=== PATIENT | female | born 1945 | race Two or more races ===

== ENCOUNTER 2018-04-07 19:06 | Inpatient (IN) | payer MEDICARE, MEDICAID ==
[~2018-04-07] VITALS: Ht 152.4 cm; Wt 45.6 kg
[2018-04-07] MEDS ORDERED: SODIUM CHLORIDE 0.9% 1,000 ML IVB ONE (19:37)
[2018-04-07] MEDS ORDERED: ONDANSETRON HCL 4 MG/2 ML VIAL IV ONE (19:45)
[2018-04-07 20:35] LABS: Basophils # (auto) 0 uL; Basophils % (auto) 0.8 % (0.0-2.0); Eosinophils # (auto) 0.1 uL; Eosinophils % (auto) 1.4 % (0.0-7.0); Hematocrit 28.9 % (36.0-46.0); Hemoglobin 9.1 g/dL (12.2-16.2); Lymphocytes # (auto) 0.3 uL; Lymphocytes % (auto) 7.9 % (10.0-50.0); Mean Corpuscular Hemoglobin 28.9 pg (28.0-32.0); Mean Corpuscular Hgb Conc. 31.7 g/dL (32.0-36.0); Mean Corpuscular Volume 91.2 fL (80.0-100.0); Monocytes # (auto) 0.3 uL; Monocytes % (auto) 7.1 % (0.0-12.0); Neutrophils # (auto) 3.5 uL; Neutrophils % (auto) 82.8 % (37.0-80.0); Platelet Count (auto) 87 10^3/uL (140-450); Red Blood Cells 3.17 10^6/uL (4.0-5.20); Red Cell Distribution Width 16.4 % (11.8-14.3); White Blood Cell 4.2 10^3/uL (4.4-10.8)
[2018-04-07 20:43] LABS: INR 1.11 (0.9-1.15); Partial Thromboplastin Time 25.2 sec (23.78-33.04); Prothrombin Time 11.8 sec (9.27-12.13)
[2018-04-07 20:52] LABS: Albumin 2.6 g/dL (3.4-5.0); BUN/Creatinine Ratio 18.1; Bilirubin, Total 0.8 mg/dL (0.2-1.0); Calcium 7.9 mg/dL (8.5-10.1); Magnesium 2.6 mg/dL (1.6-2.6); Potassium 3.3 mmol/L (3.5-5.1); Total Protein 6.9 g/dL (6.4-8.2)
[2018-04-07] MEDS ORDERED: TEMAZEPAM 15 MG CAP PO PRN (22:15)
[2018-04-07] MEDS ORDERED: PANTOPRAZOLE 40 MG/10 ML VIAL IV ONE (22:15)
[2018-04-07] MEDS ORDERED: MORPHINE SULF INJ 2 MG/ML SYRINGE 1ML IV PRN (22:15)
[2018-04-07] MEDS: SODIUM CHLORIDE 0.9% 1,000 ML IV SCH (22:15)
[2018-04-07] MEDS ORDERED: ONDANSETRON HCL 4 MG/2 ML VIAL IV PRN (22:15)
[2018-04-07 22:49] LABS: Ferritin 188.1 ng/mL (10-322)
[2018-04-08] VITALS (25 sets, daily range): BP systolic 101–166; BP diastolic 46–102
[2018-04-08] MEDS ORDERED: ALPR0.25 PO (03:22)
[2018-04-08] MEDS ORDERED: FURO40TA4 PO (03:22)
[2018-04-08] MEDS ORDERED: CAR3125T PO (03:22)
[2018-04-08] MEDS ORDERED: MAGN400T5 PO (03:22)
[2018-04-08] MEDS ORDERED: ALLO100T PO (03:22)
[2018-04-08] MEDS ORDERED: TERA2CAP45 PO (03:22)
[2018-04-08] MEDS ORDERED: OME20T PO (03:22)
[2018-04-08] MEDS ORDERED: FERR1TAB36 PO (03:22)
[2018-04-08] MEDS ORDERED: BACL10TA PO (03:22)
[2018-04-08] MEDS ORDERED: [UNRECOGNIZED DRUG - CODE] PO (03:22)
[2018-04-08] MEDS ORDERED: LEV100T PO (03:22)
[2018-04-08] MEDS ORDERED: TRAM50TA2 PO (03:22)
[2018-04-08] MEDS ORDERED: SITA100T7 PO (03:22)
[2018-04-08] MEDS ORDERED: SIMV10TA84 PO (03:22)
[2018-04-08] MEDS ORDERED: DONE5TAB11 PO (03:22)
[2018-04-08] MEDS ORDERED: PATI1POW PO (03:22)
[2018-04-08] MEDS ORDERED: DONETAB5 PO (03:26)
[2018-04-08 06:07] LABS: Basophils # (auto) 0 uL; Eosinophils # (auto) 0 uL; Hemoglobin 7.2 g/dL (12.2-16.2); Lymphocytes # (auto) 0.3 uL; Monocytes # (auto) 0.2 uL; White Blood Cell 2.5 10^3/uL (4.4-10.8)
[2018-04-08 06:09] LABS: Basophils % (auto) 0.7 % (0.0-2.0); Eosinophils % (auto) 0.4 % (0.0-7.0); Hematocrit 22.1 % (36.0-46.0); Lymphocytes % (auto) 11.9 % (10.0-50.0); Mean Corpuscular Hemoglobin 29.3 pg (28.0-32.0); Mean Corpuscular Hgb Conc. 32.6 g/dL (32.0-36.0); Mean Corpuscular Volume 89.8 fL (80.0-100.0); Monocytes % (auto) 9.3 % (0.0-12.0); Neutrophils % (auto) 77.7 % (37.0-80.0); Platelet Count (auto) 66 10^3/uL (140-450); Red Blood Cells 2.46 10^6/uL (4.0-5.20); Red Cell Distribution Width 15.4 % (11.8-14.3)
[2018-04-08 06:27] LABS: BUN/Creatinine Ratio 22.3; Calcium 7.5 mg/dL (8.5-10.1)
[2018-04-08] MEDS: LEVOTHYROXINE SODIUM 100 MCG TAB PO SCH (06:45)
[2018-04-08] MEDS: FERROUS SULFATE 325 MG TAB PO SCH ×2 (08:23→18:00)
[2018-04-08] MEDS: PANTOPRAZOLE 40 MG/10 ML VIAL IV SCH ×2 (09:41→22:18)
[2018-04-08] MEDS ORDERED: LIDOCAINE VISCOUS 2% 15ML UD ONE (12:33)
[2018-04-08] MEDS ORDERED: SODIUM CHLORIDE LOCK 10 ML ONE (12:33)
[2018-04-08] MEDS ORDERED: diphenhdrAMINE HCL 50 MG/1 ML VL ONE (12:34)
[2018-04-08] MEDS ORDERED: NALOXONE HCL 0.4 MG/ML VIAL ONE (12:39)
[2018-04-08] MEDS ORDERED: FLUMAZENIL 0.1 MG/ML INJ 10ML MDV IV ONE (12:39)
[2018-04-08] MEDS: fentaNYL CITRATE 100 MCG/2 ML VL ONE ×2 (12:55→12:58)
[2018-04-08] MEDS: MIDAZOLAM HCL 5 MG/ML-1ML VIAL ONE ×2 (12:55→12:58)
[2018-04-08] MEDS ORDERED: OCTREOTIDE ACETATE 100 MCG in SODIUM CHL 0.9% 50 ML IV ONE (13:15)
[2018-04-08] MEDS: OCTREOTIDE ACETATE 500 MCG in SODIUM CHL 0.9% 99 ML IV SCH ×2 (16:00→23:31)
[2018-04-08] MEDS ORDERED: FUROSEMIDE 20 MG/2 ML VIAL IV ONE (17:15)
[2018-04-08] MEDS ORDERED: ERY05OO OP (20:52)
[2018-04-08] MEDS: LABETALOL HCL 5 MG/ML ML 20ML VIAL IV PRN (21:21)
[2018-04-08] MEDS: SODIUM CHLORIDE 0.9% 1,000 ML IV SCH (21:23)
[2018-04-08] MEDS: DONEPEZIL HYDROCHLORIDE 5 MG TAB PO SCH (22:00)
[2018-04-08 23:09] LABS: Hematocrit 43.9 % (36.0-46.0); Hemoglobin 14.4 g/dL (12.2-16.2)
[2018-04-08] MEDS: OCTREOTIDE ACETATE 500 MCG/ML VL ONE ×2 (23:15→23:30)
[2018-04-08] MEDS ORDERED: OCTREOTIDE ACETATE 100 MCG/ML VL ONE (23:19)
[2018-04-09] VITALS: BP 142/78
[2018-04-09 04:00] VITALS: BP 145/85
[2018-04-09 05:03] LABS: Basophils # (auto) 0 uL; Eosinophils # (auto) 0 uL; Lymphocytes # (auto) 0.3 uL; Mean Corpuscular Hgb Conc. 33.6 g/dL (32.0-36.0); Monocytes # (auto) 0.4 uL; Neutrophils # (auto) 3.5 uL; White Blood Cell 4.2 10^3/uL (4.4-10.8)
[2018-04-09 05:10] LABS: Basophils % (auto) 0.8 % (0.0-2.0); Eosinophils % (auto) 0.7 % (0.0-7.0); Hematocrit 39.8 % (36.0-46.0); Hemoglobin 13.4 g/dL (12.2-16.2); Mean Corpuscular Hemoglobin 30.1 pg (28.0-32.0); Mean Corpuscular Volume 89.7 fL (80.0-100.0); Monocytes % (auto) 8.8 % (0.0-12.0); Neutrophils % (auto) 81.7 % (37.0-80.0); Nucleated Red Blood Cells % 0.2 %; Platelet Count (auto) 53 10^3/uL (140-450); Red Blood Cells 4.43 10^6/uL (4.0-5.20)
[2018-04-09] MEDS: SODIUM CHLORIDE 0.9% 1,000 ML IV SCH (06:34)
[2018-04-09] MEDS: LEVOTHYROXINE SODIUM 100 MCG TAB PO SCH ×2 (06:35→06:38)
[2018-04-09 08:00] VITALS: BP 120/87
[2018-04-09] MEDS: FERROUS SULFATE 325 MG TAB PO SCH ×2 (08:00→18:02)
[2018-04-09] MEDS: PANTOPRAZOLE 40 MG/10 ML VIAL IV SCH ×2 (10:25→21:25)
[2018-04-09] MEDS: OCTREOTIDE ACETATE 500 MCG in SODIUM CHL 0.9% 99 ML IV SCH (10:44)
[2018-04-09 12:00] VITALS: BP 138/64
[2018-04-09] MEDS: ERYTHROMY OPTH OINT 5mg/gm 1gm OP SCH ×2 (12:00→21:25)
[2018-04-09 17:00] VITALS: BP 155/88
[2018-04-09] MEDS: DONEPEZIL HYDROCHLORIDE 5 MG TAB PO SCH (21:25)
[2018-04-09] MEDS: LABETALOL HCL 5 MG/ML ML 20ML VIAL IV PRN (21:32)
[2018-04-09 22:00] VITALS: BP 157/93
[2018-04-10] MEDS: SODIUM CHLORIDE 0.9% 1,000 ML IV SCH ×2 (00:15→17:47)
[2018-04-10 05:00] VITALS: BP 151/76
[2018-04-10] MEDS: ERYTHROMY OPTH OINT 5mg/gm 1gm OP SCH ×4 (05:53→21:37)
[2018-04-10] MEDS: LEVOTHYROXINE SODIUM 100 MCG TAB PO SCH (06:36)
[2018-04-10 08:00] VITALS: BP 134/65
[2018-04-10 08:03] LABS: Basophils # (auto) 0 uL; Eosinophils # (auto) 0 uL; Lymphocytes # (auto) 0.4 uL; Monocytes # (auto) 0.4 uL; Neutrophils # (auto) 4.3 uL
[2018-04-10 08:05] LABS: Basophils % (auto) 0.5 % (0.0-2.0); Eosinophils % (auto) 0.9 % (0.0-7.0); Hematocrit 39.5 % (36.0-46.0); Hemoglobin 12.8 g/dL (12.2-16.2); Lymphocytes % (auto) 7.7 % (10.0-50.0); Mean Corpuscular Hemoglobin 29.3 pg (28.0-32.0); Mean Corpuscular Hgb Conc. 32.5 g/dL (32.0-36.0); Mean Corpuscular Volume 90.3 fL (80.0-100.0); Monocytes % (auto) 7.7 % (0.0-12.0); Neutrophils % (auto) 83.2 % (37.0-80.0); Nucleated Red Blood Cells % 0.2 %; Red Blood Cells 4.37 10^6/uL (4.0-5.20); Red Cell Distribution Width 15.1 % (11.8-14.3); White Blood Cell 5.1 10^3/uL (4.4-10.8)
[2018-04-10 08:14] LABS: Platelet Count (auto) 60 10^3/uL (140-450)
[2018-04-10] MEDS: FERROUS SULFATE 325 MG TAB PO SCH ×2 (09:00→17:47)
[2018-04-10] MEDS: PANTOPRAZOLE 40 MG/10 ML VIAL IV SCH ×2 (09:00→21:37)
[2018-04-10 09:54] LABS: Folate (Folic Acid) 8.11 ng/mL (5.38-24)
[2018-04-10 13:00] VITALS: BP 152/85
[2018-04-10 17:00] VITALS: BP 144/78
[2018-04-10] MEDS: DONEPEZIL HYDROCHLORIDE 5 MG TAB PO SCH (21:37)
[2018-04-10 22:00] VITALS: BP 140/85
[2018-04-11 05:00] VITALS: BP 134/76
[2018-04-11 05:38] LABS: Eosinophils # (auto) 0.1 uL; Eosinophils % (auto) 2.2 % (0.0-7.0); Monocytes # (auto) 0.5 uL
[2018-04-11 05:41] LABS: Basophils # (auto) 0 uL; Basophils % (auto) 0.6 % (0.0-2.0); Hemoglobin 13.9 g/dL (12.2-16.2); Lymphocytes # (auto) 0.3 uL; Lymphocytes % (auto) 5.6 % (10.0-50.0); Mean Corpuscular Hemoglobin 30.7 pg (28.0-32.0); Mean Corpuscular Hgb Conc. 33.8 g/dL (32.0-36.0); Mean Corpuscular Volume 90.8 fL (80.0-100.0); Monocytes % (auto) 9.3 % (0.0-12.0); Neutrophils # (auto) 4.2 uL; Neutrophils % (auto) 82.3 % (37.0-80.0); Nucleated Red Blood Cells % 0.1 %; Platelet Count (auto) 54 10^3/uL (140-450); Red Blood Cells 4.52 10^6/uL (4.0-5.20); Red Cell Distribution Width 15.1 % (11.8-14.3)
[2018-04-11] MEDS: ERYTHROMY OPTH OINT 5mg/gm 1gm OP SCH ×3 (05:52→17:19)
[2018-04-11 06:08] LABS: Calcium 8.1 mg/dL (8.5-10.1); Potassium 3.2 mmol/L (3.5-5.1)
[2018-04-11 06:12] LABS: Albumin 2.5 g/dL (3.4-5.0); BUN/Creatinine Ratio 21.6
[2018-04-11] MEDS: LEVOTHYROXINE SODIUM 100 MCG TAB PO SCH (06:14)
[2018-04-11 06:15] LABS: Bilirubin, Total 3.2 mg/dL (0.2-1.0); Total Protein 6.8 g/dL (6.4-8.2)
[2018-04-11] MEDS: PANTOPRAZOLE 40 MG/10 ML VIAL IV SCH (07:59)
[2018-04-11] MEDS: FERROUS SULFATE 325 MG TAB PO SCH ×2 (07:59→13:17)
[2018-04-11] MEDS: SODIUM CHLORIDE 0.9% 1,000 ML IV SCH (07:59)
[2018-04-11 08:58] VITALS: BP 139/88
[2018-04-11 11:55] VITALS: BP 145/80
[2018-04-11 17:43] VITALS: BP 134/72
== END 2018-04-11 20:35 | disposition home or self-care (01) | DRG 432 ==
LOC: ER 19:13 → TELE 19:14 → TELE-EAST 23:47 → ICU WEST 04-08 15:25 → DOU IN ICU 04-08 23:11 → TELE-CENTR 04-09 14:45
PROVIDERS: ADMIT Nurse Practitioner Family; ATTEND Family Medicine
PROC: 30233N1 Transfusion of Nonautologous Red Blood Cells into Peripheral Vein, Percutaneous Approach (ICD-10-PCS; 2018-04-08)
PROC: 06L38CZ Occlusion of Esophageal Vein with Extraluminal Device, Via Natural or Artificial Opening Endoscopic (ICD-10-PCS; principal; 2018-04-08 12:31)
DX: K74.60 Unspecified cirrhosis of liver (principal); I85.11 Secondary esophageal varices with bleeding; E44.0 Moderate protein-calorie malnutrition; D61.818 Other pancytopenia; D62 Acute posthemorrhagic anemia; I13.0 Hypertensive heart and chronic kidney disease with heart failure and stage 1 through stage 4 chronic kidney disease, or unspecified chronic kidney disease; K76.6 Portal hypertension; Z68.1 Body mass index [BMI] 19.9 or less, adult; E87.6 Hypokalemia; E11.65 Type 2 diabetes mellitus with hyperglycemia; E03.9 Hypothyroidism, unspecified; E11.22 Type 2 diabetes mellitus with diabetic chronic kidney disease; E78.00 Pure hypercholesterolemia, unspecified; B95.62 Methicillin resistant Staphylococcus aureus infection as the cause of diseases classified elsewhere; F03.90 Unspecified dementia, unspecified severity, without behavioral disturbance, psychotic disturbance, mood disturbance, and anxiety; I25.10 Atherosclerotic heart disease of native coronary artery without angina pectoris; I50.9 Heart failure, unspecified; K20.9 Esophagitis, unspecified; K31.89 Other diseases of stomach and duodenum; N18.3 Chronic kidney disease, stage 3 (moderate); Z82.49 Family history of ischemic heart disease and other diseases of the circulatory system; Z95.810 Presence of automatic (implantable) cardiac defibrillator; I25.2 Old myocardial infarction; Z90.49 Acquired absence of other specified parts of digestive tract; Z88.5 Allergy status to narcotic agent; Z88.2 Allergy status to sulfonamides; Z79.899 Other long term (current) drug therapy
CPT/HCPCS: 36415; 43244; 71045; 74176; 80048; 80053; 82607; 82728; 82746; 82962; 83540; 83735; 85014; 85018; 85025; 85610; 85730; 86850; 86900; 86901; 86920; 93005; 96361; 96365; 96375; 97116; A6257; C9113; J2250; J2405

== ENCOUNTER 2018-05-13 18:23 | Inpatient (IN) | payer MEDICARE, MEDICAID ==
[2018-05-13] VITALS (7 sets, daily range): BP systolic 63–90; BP diastolic 45–57
[~2018-05-13] VITALS: Ht 147.3 cm; Wt 52.1 kg
[~2018-05-13 18:23] MED LIST: ALLO100T PO; ALPR0.25 PO; BACL10TA PO; CAR3125T PO; DONETAB5 PO; ERY05OO OP; FERR1TAB36 PO; FURO40TA4 PO; LEV100T PO; MAGN400T5 PO; OME20T PO; PATI1POW PO; SIMV10TA84 PO; SITA100T7 PO; TERA2CAP45 PO; TRAM50TA2 PO; [UNRECOGNIZED DRUG - CODE] PO
[2018-05-13] MEDS ORDERED: PANTOPRAZOLE 40 MG/10 ML VIAL IV ONE (18:45)
[2018-05-13] MEDS ORDERED: PHYTONADIONE (VIT K)10 MG/ML 1ML VIAL SUBCUT ONE (18:45)
[2018-05-13] MEDS ORDERED: ONDANSETRON HCL 4 MG/2 ML VIAL ONE (19:42)
[2018-05-13] MEDS ORDERED: HETASTARCH 500 ML IV ONE (20:30)
[2018-05-13 20:42] LABS: Basophils # (auto) 0 uL; Basophils % (auto) 0.6 % (0.0-2.0); Eosinophils # (auto) 0 uL; Eosinophils % (auto) 0.2 % (0.0-7.0); Hematocrit 16.7 % (36.0-46.0); Hemoglobin 5.5 g/dL (12.2-16.2); Lymphocytes # (auto) 0.6 uL; Lymphocytes % (auto) 10.9 % (10.0-50.0); Mean Corpuscular Hemoglobin 30.3 pg (28.0-32.0); Mean Corpuscular Hgb Conc. 32.9 g/dL (32.0-36.0); Mean Corpuscular Volume 92.2 fL (80.0-100.0); Monocytes # (auto) 0.5 uL; Monocytes % (auto) 8.5 % (0.0-12.0); Neutrophils # (auto) 4.3 uL; Neutrophils % (auto) 79.8 % (37.0-80.0); Nucleated Red Blood Cells % 0.8 %; Platelet Count (auto) 133 10^3/uL (140-450); Red Blood Cells 1.81 10^6/uL (4.0-5.20); White Blood Cell 5.5 10^3/uL (4.4-10.8)
[2018-05-13 21:35] LABS: BUN/Creatinine Ratio 21.4; Potassium 4.3 mmol/L (3.5-5.1)
[2018-05-13 21:36] LABS: Albumin 2.1 g/dL (3.4-5.0); Bilirubin, Total 0.8 mg/dL (0.2-1.0); Calcium 7.4 mg/dL (8.5-10.1); Magnesium 2.2 mg/dL (1.6-2.6); Total Protein 5.8 g/dL (6.4-8.2)
[2018-05-13 21:37] LABS: Lactic Acid w/Reflex 3.9 mmol/L (0.4-2.0)
[2018-05-13] MEDS ORDERED: ONDANSETRON HCL 4 MG/2 ML VIAL IV ONE (22:45)
[2018-05-14] VITALS (78 sets, daily range): BP systolic 76–175; BP diastolic 34–96
[2018-05-14] MEDS ORDERED: OCTREOTIDE ACETATE 100 MCG in SODIUM CHL 0.9% 50 ML IV ONE ×2
[2018-05-14] MEDS ORDERED: ONDANSETRON HCL 4 MG/2 ML VIAL IV PRN
[2018-05-14] MEDS ORDERED: ONDANSETRON HCL 4 MG/2 ML VIAL IV ONE (00:15)
[2018-05-14] MEDS ORDERED: LORazepam 2MG/ML-1ML VIAL IV PRN (00:15)
[2018-05-14] MEDS ORDERED: OCTREOTIDE ACETATE 500 MCG/ML VL ONE (05:47)
[2018-05-14] MEDS: OCTREOTIDE ACETATE 500 MCG in SODIUM CHL 0.9% 99 ML IV SCH ×2 (05:53→14:30)
[2018-05-14 09:30] LABS: Basophils # (auto) 0 uL; Basophils % (auto) 0.4 % (0.0-2.0); Eosinophils # (auto) 0 uL; Eosinophils % (auto) 0.3 % (0.0-7.0); Hematocrit 25.3 % (36.0-46.0); Hemoglobin 8.5 g/dL (12.2-16.2); Lymphocytes # (auto) 0.4 uL; Lymphocytes % (auto) 5.9 % (10.0-50.0); Mean Corpuscular Hgb Conc. 33.4 g/dL (32.0-36.0); Mean Corpuscular Volume 89.9 fL (80.0-100.0); Monocytes # (auto) 0.7 uL; Monocytes % (auto) 8.9 % (0.0-12.0); Neutrophils # (auto) 6.2 uL; Neutrophils % (auto) 84.5 % (37.0-80.0); Nucleated Red Blood Cells % 0.1 %; Platelet Count (auto) 116 10^3/uL (140-450); Red Blood Cells 2.82 10^6/uL (4.0-5.20); Red Cell Distribution Width 15.3 % (11.8-14.3); White Blood Cell 7.4 10^3/uL (4.4-10.8)
[2018-05-14] MEDS: PANTOPRAZOLE 40 MG/10 ML VIAL IV SCH ×2 (09:40→21:55)
[2018-05-14] MEDS ORDERED: SODIUM CHLORIDE 0.9% 1,000 ML IV SCH ×2 (11:15→12:30)
[2018-05-14] MEDS ORDERED: BACLOFEN 10 MG TAB PO PRN (11:15)
[2018-05-14] MEDS ORDERED: SODIUM CHLORIDE 0.9% 1,000 ML IV ONE (11:30)
[2018-05-14] MEDS ORDERED: DEXTROSE (50%) 50ML SYRG IV PRN (11:30)
[2018-05-14] MEDS ORDERED: PANTOPRAZOLE 40 MG/10 ML VIAL IV ONE (11:45)
[2018-05-14] MEDS ORDERED: MAGNESIUM OXIDE 400 MG TAB PO ONE (11:45)
[2018-05-14] MEDS ORDERED: ALLOPURINOL 100 MG TAB PO ONE (11:45)
[2018-05-14] MEDS ORDERED: CARVEDILOL 3.125 MG TAB PO ONE (11:45)
[2018-05-14] MEDS ORDERED: LEVOTHYROXINE SODIUM 112 MCG TAB PO ONE (11:45)
[2018-05-14] MEDS: PIPERACILLIN-TAZOB 3.375GM 100 ML IV SCH ×2 (12:00→17:56)
[2018-05-14] MEDS: InsuLIN REG 1unit/0.01ml Soln (100units/ml) SC SCH ×2 (12:00→18:00)
[2018-05-14] MEDS ORDERED: MIDAZOLAM HCL 5 MG/ML-1ML VIAL ONE ×2 (12:14→12:54)
[2018-05-14] MEDS ORDERED: ETOMIDATE (2MG/ML) 20ML VIAL IV ONE (12:15)
[2018-05-14] MEDS ORDERED: SUCCINYLCHOLINE CHLORIDE 20 MG/ML 10ML VIAL IV ONE (12:15)
[2018-05-14] MEDS ORDERED: ROCURONIUM 10MG/ML 10ML VIAL IV ONE (12:15)
[2018-05-14 12:42] LABS: Hemoglobin 7.2 g/dL (12.2-16.2)
[2018-05-14 12:49] LABS: INR 1.09 (0.9-1.15); Partial Thromboplastin Time 23.6 sec (23.78-33.04); Prothrombin Time 11.6 sec (9.27-12.13)
[2018-05-14 12:56] LABS: Albumin 1.9 g/dL (3.4-5.0); BUN/Creatinine Ratio 22.8; Potassium 4.6 mmol/L (3.5-5.1)
[2018-05-14] MEDS: MIDAZOLAM DRIP 50 mg/50mL 50 ML IV SCH (12:58)
[2018-05-14 12:59] LABS: Bilirubin, Total 2.1 mg/dL (0.2-1.0)
[2018-05-14] MEDS: fentaNYL Drip 2500mCg/250mlNS 250 ML IV SCH (13:02)
[2018-05-14] MEDS ORDERED: fentaNYL Drip 2500mCg/250mlNS 250 ML IV ONE (13:08)
[2018-05-14] MEDS ORDERED: EPINEPHrine HCL 1 MG/10 ML SYRG ONE (13:14)
[2018-05-14] MEDS: NOREPINEPHRINE 8 MG/250ML KIT 250 ML IV SCH (13:15)
[2018-05-14] MEDS ORDERED: PROPOFOL 10 MG/ML 20 ML IV ONE (13:38)
[2018-05-14] MEDS ORDERED: PROPOFOL 100 ML IV ONE (13:39)
[2018-05-14] MEDS: SODIUM CHLORIDE 0.9% 1,000 ML IV SCH (14:00)
[2018-05-14] MEDS: CARBIDOPA W LEVODOPA 25/100mg TABLET PO SCH ×2 (14:00→22:00)
[2018-05-14] MEDS ORDERED: LIDOCAINE 1% (LOCAL ANESTH.) PF 5ml SDV ID ONE (15:45)
[2018-05-14] MEDS: ATORVASTATIN 20 MG TAB PO SCH (22:00)
[2018-05-14] MEDS: CARVEDILOL 3.125 MG TAB PO SCH (22:00)
[2018-05-14] MEDS: DONEPEZIL HYDROCHLORIDE 5 MG TAB PO SCH (22:00)
[2018-05-14] MEDS: TERAZOSIN HCL 1 MG CAP PO SCH (22:00)
[2018-05-14] MEDS: SODIUM CHLOR 0.9% PF (SALINE LOCK) 10ML VIAL/SYR IV SCH (22:19)
[2018-05-15] VITALS (88 sets, daily range): BP systolic 92–148; BP diastolic 35–72
[2018-05-15 00:01] LABS: Basophils # (auto) 0 uL; Basophils % (auto) 0.9 % (0.0-2.0); Eosinophils # (auto) 0 uL; Eosinophils % (auto) 0.3 % (0.0-7.0); Hematocrit 29.6 % (36.0-46.0); Hemoglobin 9.8 g/dL (12.2-16.2); Lymphocytes # (auto) 0.5 uL; Lymphocytes % (auto) 8.6 % (10.0-50.0); Mean Corpuscular Hemoglobin 30.5 pg (28.0-32.0); Mean Corpuscular Hgb Conc. 33.2 g/dL (32.0-36.0); Mean Corpuscular Volume 91.9 fL (80.0-100.0); Monocytes # (auto) 0.5 uL; Monocytes % (auto) 9.8 % (0.0-12.0); Neutrophils # (auto) 4.2 uL; Neutrophils % (auto) 80.4 % (37.0-80.0); Nucleated Red Blood Cells % 0.2 %; Platelet Count (auto) 73 10^3/uL (140-450); Red Blood Cells 3.22 10^6/uL (4.0-5.20); Red Cell Distribution Width 15.5 % (11.8-14.3); White Blood Cell 5.2 10^3/uL (4.4-10.8)
[2018-05-15] MEDS: InsuLIN REG 1unit/0.01ml Soln (100units/ml) SC SCH ×4 (00:13→16:59)
[2018-05-15] MEDS: PIPERACILLIN-TAZOB 3.375GM 100 ML IV SCH ×4 (00:14→16:56)
[2018-05-15 00:18] LABS: Albumin 1.8 g/dL (3.4-5.0); BUN/Creatinine Ratio 23.6; Calcium 6.4 mg/dL (8.5-10.1)
[2018-05-15 00:21] LABS: Bilirubin, Total 2.1 mg/dL (0.2-1.0); Total Protein 4.7 g/dL (6.4-8.2)
[2018-05-15] MEDS: OCTREOTIDE ACETATE 500 MCG in SODIUM CHL 0.9% 99 ML IV SCH ×4 (00:53→22:33)
[2018-05-15 04:25] LABS: Basophils # (auto) 0 uL; Basophils % (auto) 0.7 % (0.0-2.0); Eosinophils # (auto) 0 uL; Eosinophils % (auto) 0.5 % (0.0-7.0); Hemoglobin 10.1 g/dL (12.2-16.2); Lymphocytes # (auto) 0.5 uL; Lymphocytes % (auto) 8.2 % (10.0-50.0); Mean Corpuscular Hemoglobin 30.9 pg (28.0-32.0); Mean Corpuscular Hgb Conc. 33.6 g/dL (32.0-36.0); Monocytes # (auto) 0.5 uL; Monocytes % (auto) 9.7 % (0.0-12.0); Neutrophils # (auto) 4.5 uL; Neutrophils % (auto) 80.9 % (37.0-80.0); Nucleated Red Blood Cells % 0.3 %; Platelet Count (auto) 74 10^3/uL (140-450); Red Blood Cells 3.26 10^6/uL (4.0-5.20); Red Cell Distribution Width 15.3 % (11.8-14.3); White Blood Cell 5.5 10^3/uL (4.4-10.8)
[2018-05-15 04:43] LABS: Albumin 1.8 g/dL (3.4-5.0); Calcium 6.5 mg/dL (8.5-10.1)
[2018-05-15 04:45] LABS: BUN/Creatinine Ratio 21.3
[2018-05-15 04:48] LABS: Bilirubin, Total 2.5 mg/dL (0.2-1.0)
[2018-05-15] MEDS: CARBIDOPA W LEVODOPA 25/100mg TABLET PO SCH ×3 (06:00→22:00)
[2018-05-15] MEDS: LEVOTHYROXINE SODIUM 112 MCG TAB PO SCH (07:00)
[2018-05-15] MEDS: MAGNESIUM OXIDE 400 MG TAB PO SCH (09:49)
[2018-05-15] MEDS: CARVEDILOL 3.125 MG TAB PO SCH ×2 (09:49→22:00)
[2018-05-15] MEDS: ALLOPURINOL 100 MG TAB PO SCH (09:50)
[2018-05-15] MEDS: NOREPINEPHRINE 8 MG/250ML KIT 250 ML IV SCH (09:50)
[2018-05-15] MEDS: PANTOPRAZOLE 40 MG/10 ML VIAL IV SCH ×2 (10:26→21:44)
[2018-05-15] MEDS: SODIUM CHLOR 0.9% PF (SALINE LOCK) 10ML VIAL/SYR IV SCH ×2 (10:26→21:45)
[2018-05-15] MEDS: SODIUM CHLORIDE 0.9% 1,000 ML IV SCH (10:27)
[2018-05-15 11:14] LABS: Urine Bacteria NONE SEEN /hpf (None Seen); Urine Blood 1+ /uL (Negative); Urine Specific Gravity 1.022 (1.001-1.035); Urine WBC 6 /hpf (0 - 5)
[2018-05-15 12:08] LABS: Hematocrit 30.2 % (36.0-46.0); Hemoglobin 10.2 g/dL (12.2-16.2)
[2018-05-15] MEDS: MIDAZOLAM DRIP 50 mg/50mL 50 ML IV SCH (12:58)
[2018-05-15] MEDS: fentaNYL Drip 2500mCg/250mlNS 250 ML IV SCH (13:02)
[2018-05-15] MEDS: ACCU-CHEK COMFORT CURVE STRIP VI SCH ×2 (13:03→16:56)
[2018-05-15] MEDS ORDERED: EPINEPHrine HCL 0.5 ML NEB ONE (15:16)
[2018-05-15] MEDS: DONEPEZIL HYDROCHLORIDE 5 MG TAB PO SCH (22:00)
[2018-05-15] MEDS: TERAZOSIN HCL 1 MG CAP PO SCH (22:00)
[2018-05-15] MEDS: ATORVASTATIN 20 MG TAB PO SCH (22:00)
[2018-05-16] VITALS (42 sets, daily range): BP systolic 100–144; BP diastolic 42–74
[2018-05-16] MEDS: PIPERACILLIN-TAZOB 3.375GM 100 ML IV SCH ×3 (00:06→12:13)
[2018-05-16] MEDS: SODIUM CHLORIDE 0.9% 1,000 ML IV SCH (00:06)
[2018-05-16] MEDS: ACCU-CHEK COMFORT CURVE STRIP VI SCH ×5 (00:06→23:51)
[2018-05-16 04:12] LABS: Eosinophils # (auto) 0.1 uL; Hemoglobin 9.6 g/dL (12.2-16.2); Monocytes # (auto) 0.5 uL; Neutrophils # (auto) 4.1 uL
[2018-05-16 04:14] LABS: Basophils # (auto) 0.1 uL; Basophils % (auto) 1.1 % (0.0-2.0); Eosinophils % (auto) 2.5 % (0.0-7.0); Hematocrit 28.8 % (36.0-46.0); Lymphocytes # (auto) 0.3 uL; Lymphocytes % (auto) 5.1 % (10.0-50.0); Mean Corpuscular Hemoglobin 31.4 pg (28.0-32.0); Mean Corpuscular Hgb Conc. 33.4 g/dL (32.0-36.0); Neutrophils % (auto) 82.3 % (37.0-80.0); Nucleated Red Blood Cells % 0.2 %; Platelet Count (auto) 64 10^3/uL (140-450); Red Blood Cells 3.07 10^6/uL (4.0-5.20); Red Cell Distribution Width 15.6 % (11.8-14.3)
[2018-05-16 04:27] LABS: Albumin 1.8 g/dL (3.4-5.0); Calcium 6.7 mg/dL (8.5-10.1); Potassium 3.3 mmol/L (3.5-5.1)
[2018-05-16 04:29] LABS: BUN/Creatinine Ratio 20.3
[2018-05-16 04:32] LABS: Bilirubin, Total 1.7 mg/dL (0.2-1.0)
[2018-05-16] MEDS: CARBIDOPA W LEVODOPA 25/100mg TABLET PO SCH ×3 (06:00→21:50)
[2018-05-16] MEDS: InsuLIN REG 1unit/0.01ml Soln (100units/ml) SC SCH ×5 (06:00→23:51)
[2018-05-16] MEDS: LEVOTHYROXINE SODIUM 112 MCG TAB PO SCH (07:00)
[2018-05-16] MEDS ORDERED: POTASSIUM CHL 20MEQ/100ML 100 ML IV ONE (10:00)
[2018-05-16] MEDS: MAGNESIUM OXIDE 400 MG TAB PO SCH (10:00)
[2018-05-16] MEDS: CARVEDILOL 3.125 MG TAB PO SCH ×2 (10:00→21:51)
[2018-05-16] MEDS: ALLOPURINOL 100 MG TAB PO SCH (10:00)
[2018-05-16] MEDS: PANTOPRAZOLE 40 MG/10 ML VIAL IV SCH ×2 (10:38→21:50)
[2018-05-16] MEDS: SODIUM CHLOR 0.9% PF (SALINE LOCK) 10ML VIAL/SYR IV SCH ×2 (10:39→21:51)
[2018-05-16] MEDS: cefTRIAXone 1GM/10ml IVPUSH 10 ML IV SCH (18:30)
[2018-05-16] MEDS: ATORVASTATIN 20 MG TAB PO SCH (21:49)
[2018-05-16] MEDS: DONEPEZIL HYDROCHLORIDE 5 MG TAB PO SCH (21:50)
[2018-05-16] MEDS: TERAZOSIN HCL 1 MG CAP PO SCH (21:51)
[2018-05-17 05:03] VITALS: BP 104/61
[2018-05-17] MEDS: CARBIDOPA W LEVODOPA 25/100mg TABLET PO SCH ×3 (05:32→22:25)
[2018-05-17] MEDS: LEVOTHYROXINE SODIUM 112 MCG TAB PO SCH (05:32)
[2018-05-17] MEDS: ACCU-CHEK COMFORT CURVE STRIP VI SCH ×3 (05:32→18:05)
[2018-05-17] MEDS: InsuLIN REG 1unit/0.01ml Soln (100units/ml) SC SCH ×3 (05:33→18:00)
[2018-05-17 07:06] LABS: Basophils # (auto) 0 uL; Monocytes # (auto) 0.5 uL; White Blood Cell 4.4 10^3/uL (4.4-10.8)
[2018-05-17 07:11] LABS: Basophils % (auto) 0.8 % (0.0-2.0); Eosinophils # (auto) 0.2 uL; Eosinophils % (auto) 3.5 % (0.0-7.0); Hematocrit 27.5 % (36.0-46.0); Hemoglobin 9.2 g/dL (12.2-16.2); Lymphocytes # (auto) 0.2 uL; Lymphocytes % (auto) 5.7 % (10.0-50.0); Mean Corpuscular Hemoglobin 31.6 pg (28.0-32.0); Mean Corpuscular Hgb Conc. 33.6 g/dL (32.0-36.0); Mean Corpuscular Volume 94.2 fL (80.0-100.0); Monocytes % (auto) 10.7 % (0.0-12.0); Neutrophils # (auto) 3.5 uL; Neutrophils % (auto) 79.3 % (37.0-80.0); Nucleated Red Blood Cells % 0.3 %; Platelet Count (auto) 57 10^3/uL (140-450); Red Blood Cells 2.92 10^6/uL (4.0-5.20); Red Cell Distribution Width 15.6 % (11.8-14.3)
[2018-05-17 07:27] VITALS: BP 131/52
[2018-05-17 07:33] LABS: Albumin 1.9 g/dL (3.4-5.0); BUN/Creatinine Ratio 19.3; Bilirubin, Total 1.1 mg/dL (0.2-1.0); Calcium 7.4 mg/dL (8.5-10.1); Potassium 3.4 mmol/L (3.5-5.1); Total Protein 5.3 g/dL (6.4-8.2)
[2018-05-17] MEDS: PANTOPRAZOLE 40 MG/10 ML VIAL IV SCH ×2 (10:02→22:24)
[2018-05-17] MEDS: SODIUM CHLOR 0.9% PF (SALINE LOCK) 10ML VIAL/SYR IV SCH ×2 (10:02→22:24)
[2018-05-17] MEDS: ALLOPURINOL 100 MG TAB PO SCH (10:02)
[2018-05-17 11:39] VITALS: BP 101/49
[2018-05-17 16:39] VITALS: BP 100/55
[2018-05-17] MEDS: cefTRIAXone 1GM/10ml IVPUSH 10 ML IV SCH (18:17)
[2018-05-17 22:00] VITALS: BP 104/53
[2018-05-17] MEDS: DONEPEZIL HYDROCHLORIDE 5 MG TAB PO SCH (22:24)
[2018-05-17] MEDS: ATORVASTATIN 20 MG TAB PO SCH (22:25)
[2018-05-17] MEDS ORDERED: ALPR0.25 PO (23:13)
[2018-05-17] MEDS ORDERED: CARB25TA3 PO (23:13)
[2018-05-17] MEDS ORDERED: PANT1INJ3 IV (23:13)
[2018-05-18] MEDS: ACCU-CHEK COMFORT CURVE STRIP VI SCH ×4 (00:22→18:01)
[2018-05-18 05:20] VITALS: BP 108/52
[2018-05-18] MEDS: InsuLIN REG 1unit/0.01ml Soln (100units/ml) SC SCH ×4 (06:00→18:00)
[2018-05-18 06:27] LABS: Basophils # (auto) 0 uL; Basophils % (auto) 0.5 % (0.0-2.0); Eosinophils # (auto) 0.1 uL; Eosinophils % (auto) 2.7 % (0.0-7.0); Hematocrit 31.7 % (36.0-46.0); Hemoglobin 9.7 g/dL (12.2-16.2); Lymphocytes # (auto) 0.3 uL; Lymphocytes % (auto) 5.2 % (10.0-50.0); Mean Corpuscular Hgb Conc. 30.5 g/dL (32.0-36.0); Mean Corpuscular Volume 101.6 fL (80.0-100.0); Monocytes # (auto) 0.6 uL; Monocytes % (auto) 12.5 % (0.0-12.0); Neutrophils # (auto) 3.9 uL; Neutrophils % (auto) 79.1 % (37.0-80.0); Nucleated Red Blood Cells % 0.2 %; Platelet Count (auto) 57 10^3/uL (140-450); Red Blood Cells 3.12 10^6/uL (4.0-5.20); Red Cell Distribution Width 17.4 % (11.8-14.3); White Blood Cell 4.9 10^3/uL (4.4-10.8)
[2018-05-18] MEDS: LEVOTHYROXINE SODIUM 112 MCG TAB PO SCH (06:32)
[2018-05-18] MEDS: CARBIDOPA W LEVODOPA 25/100mg TABLET PO SCH ×3 (06:32→21:12)
[2018-05-18 06:40] LABS: Albumin 1.9 g/dL (3.4-5.0); BUN/Creatinine Ratio 18.6; Bilirubin, Total 0.6 mg/dL (0.2-1.0); Calcium 7.2 mg/dL (8.5-10.1); Potassium 3.5 mmol/L (3.5-5.1); Total Protein 5.3 g/dL (6.4-8.2)
[2018-05-18 09:00] VITALS: BP 111/62
[2018-05-18] MEDS: PANTOPRAZOLE 40 MG/10 ML VIAL IV SCH (09:45)
[2018-05-18] MEDS: SODIUM CHLOR 0.9% PF (SALINE LOCK) 10ML VIAL/SYR IV SCH ×2 (09:45→21:57)
[2018-05-18] MEDS: ALLOPURINOL 100 MG TAB PO SCH (09:45)
[2018-05-18] MEDS ORDERED: MIDAZOLAM HCL 5 MG/ML-1ML VIAL IV ONE ×2 (10:45)
[2018-05-18 13:00] VITALS: BP 103/70
[2018-05-18 17:00] VITALS: BP 139/86
[2018-05-18] MEDS: cefTRIAXone 1GM/10ml IVPUSH 10 ML IV SCH (18:01)
[2018-05-18] MEDS: PANTOPRAZOLE 40 MG TAB PO SCH (21:13)
[2018-05-18] MEDS: DONEPEZIL HYDROCHLORIDE 5 MG TAB PO SCH (21:13)
[2018-05-18] MEDS: ATORVASTATIN 20 MG TAB PO SCH (21:14)
[2018-05-18 22:00] VITALS: BP 104/66
[2018-05-19] MEDS: ACCU-CHEK COMFORT CURVE STRIP VI SCH ×5 (00:09→23:45)
[2018-05-19 04:48] VITALS: BP 96/56
[2018-05-19 05:12] LABS: Basophils # (auto) 0 uL; Eosinophils # (auto) 0.1 uL; Lymphocytes # (auto) 0.4 uL; Monocytes # (auto) 0.5 uL; Neutrophils # (auto) 3.1 uL; White Blood Cell 4.1 10^3/uL (4.4-10.8)
[2018-05-19 05:15] LABS: Hematocrit 26.8 % (36.0-46.0); Lymphocytes % (auto) 8.8 % (10.0-50.0); Mean Corpuscular Hemoglobin 31.4 pg (28.0-32.0); Mean Corpuscular Hgb Conc. 33.5 g/dL (32.0-36.0); Mean Corpuscular Volume 93.7 fL (80.0-100.0); Monocytes % (auto) 11.3 % (0.0-12.0); Neutrophils % (auto) 75.9 % (37.0-80.0); Nucleated Red Blood Cells % 0.1 %; Platelet Count (auto) 56 10^3/uL (140-450); Red Blood Cells 2.86 10^6/uL (4.0-5.20); Red Cell Distribution Width 16.6 % (11.8-14.3)
[2018-05-19 05:36] LABS: Alanine Aminotransferase < 6 U/L (13-56); Albumin 1.9 g/dL (3.4-5.0); Alkaline Phosphatase 303 U/L (45-117); Anion Gap 9 (5-15); Aspartate Aminotransferase 37 U/L (15-37); BUN/Creatinine Ratio 18.6; Bilirubin, Total 0.6 mg/dL (0.2-1.0); Blood Urea Nitrogen 33 mg/dL (7-18); Carbon Dioxide 23 mmol/L (21-32); Chloride 112 mmol/L (98-107); GFR African American 36 mL/min; GFR Non-African American 30 mL/min; Glucose 107 mg/dL (74-106); Potassium 3.5 mmol/L (3.5-5.1); Sodium 144 mmol/L (136-145); Total Protein 5.5 g/dL (6.4-8.2)
[2018-05-19] MEDS: InsuLIN REG 1unit/0.01ml Soln (100units/ml) SC SCH ×5 (06:00→23:45)
[2018-05-19] MEDS: LEVOTHYROXINE SODIUM 112 MCG TAB PO SCH (06:03)
[2018-05-19] MEDS: CARBIDOPA W LEVODOPA 25/100mg TABLET PO SCH ×3 (06:03→21:52)
[2018-05-19] MEDS ORDERED: PANT40T PO (08:44)
[2018-05-19 09:00] VITALS: BP 118/76
[2018-05-19] MEDS: ALLOPURINOL 100 MG TAB PO SCH (10:01)
[2018-05-19] MEDS: PANTOPRAZOLE 40 MG TAB PO SCH ×2 (10:01→21:52)
[2018-05-19] MEDS: SODIUM CHLOR 0.9% PF (SALINE LOCK) 10ML VIAL/SYR IV SCH ×2 (10:02→21:52)
[2018-05-19 13:00] VITALS: BP 104/68
[2018-05-19 17:00] VITALS: BP 110/65
[2018-05-19] MEDS: cefTRIAXone 1GM/10ml IVPUSH 10 ML IV SCH (17:53)
[2018-05-19 21:46] VITALS: BP 116/70
[2018-05-19] MEDS: DONEPEZIL HYDROCHLORIDE 5 MG TAB PO SCH (21:52)
[2018-05-19] MEDS: ATORVASTATIN 20 MG TAB PO SCH (21:52)
[2018-05-20 04:55] VITALS: BP 111/54
[2018-05-20] MEDS: InsuLIN REG 1unit/0.01ml Soln (100units/ml) SC SCH ×3 (06:00→18:00)
[2018-05-20] MEDS: LEVOTHYROXINE SODIUM 112 MCG TAB PO SCH (06:02)
[2018-05-20] MEDS: CARBIDOPA W LEVODOPA 25/100mg TABLET PO SCH ×2 (06:02→15:48)
[2018-05-20] MEDS: ACCU-CHEK COMFORT CURVE STRIP VI SCH ×3 (06:11→18:00)
[2018-05-20 09:00] VITALS: BP 111/64
[2018-05-20] MEDS: PANTOPRAZOLE 40 MG TAB PO SCH (10:26)
[2018-05-20] MEDS: SODIUM CHLOR 0.9% PF (SALINE LOCK) 10ML VIAL/SYR IV SCH (10:26)
[2018-05-20] MEDS: ALLOPURINOL 100 MG TAB PO SCH (10:26)
[2018-05-20 13:00] VITALS: BP 120/64
[2018-05-20 17:00] VITALS: BP 115/61
[2018-05-20] MEDS: cefTRIAXone 1GM/10ml IVPUSH 10 ML IV SCH (18:00)
== END 2018-05-20 20:00 | disposition home health service (06) | DRG 871 ==
LOC: ER 18:23 → EDBD 18:23 → EDUNIT# 18:23 → OVERFLOW 18:24 → ICU WEST 05-14 01:50 → TELE-WESTW 05-16 18:03
PROVIDERS: ADMIT Nurse Practitioner Family; ATTEND Internal Medicine
PROC: 30233L1 Transfusion of Nonautologous Fresh Plasma into Peripheral Vein, Percutaneous Approach (ICD-10-PCS; 2018-05-13)
PROC: 30233N1 Transfusion of Nonautologous Red Blood Cells into Peripheral Vein, Percutaneous Approach (ICD-10-PCS; 2018-05-13)
PROC: 30233K1 Transfusion of Nonautologous Frozen Plasma into Peripheral Vein, Percutaneous Approach (ICD-10-PCS; 2018-05-13)
PROC: 0BH17EZ Insertion of Endotracheal Airway into Trachea, Via Natural or Artificial Opening (ICD-10-PCS; 2018-05-14)
PROC: 5A1945Z Respiratory Ventilation, 24-96 Consecutive Hours (ICD-10-PCS; 2018-05-14)
PROC: 06L38CZ Occlusion of Esophageal Vein with Extraluminal Device, Via Natural or Artificial Opening Endoscopic (ICD-10-PCS; principal; 2018-05-14 13:30)
DX: A41.9 Sepsis, unspecified organism (principal); I85.01 Esophageal varices with bleeding; I50.43 Acute on chronic combined systolic (congestive) and diastolic (congestive) heart failure; J18.9 Pneumonia, unspecified organism; J96.00 Acute respiratory failure, unspecified whether with hypoxia or hypercapnia; I21.A1 Myocardial infarction type 2; D62 Acute posthemorrhagic anemia; I13.0 Hypertensive heart and chronic kidney disease with heart failure and stage 1 through stage 4 chronic kidney disease, or unspecified chronic kidney disease; N17.9 Acute kidney failure, unspecified; R18.8 Other ascites; E87.0 Hyperosmolality and hypernatremia; I42.9 Cardiomyopathy, unspecified; K76.6 Portal hypertension; N18.4 Chronic kidney disease, stage 4 (severe); D69.6 Thrombocytopenia, unspecified; E03.9 Hypothyroidism, unspecified; K74.60 Unspecified cirrhosis of liver; E11.21 Type 2 diabetes mellitus with diabetic nephropathy; E11.22 Type 2 diabetes mellitus with diabetic chronic kidney disease; E11.65 Type 2 diabetes mellitus with hyperglycemia; E78.5 Hyperlipidemia, unspecified; K31.89 Other diseases of stomach and duodenum; K75.81 Nonalcoholic steatohepatitis (NASH); E78.00 Pure hypercholesterolemia, unspecified; E86.9 Volume depletion, unspecified; F03.90 Unspecified dementia, unspecified severity, without behavioral disturbance, psychotic disturbance, mood disturbance, and anxiety; I25.10 Atherosclerotic heart disease of native coronary artery without angina pectoris; Z79.84 Long term (current) use of oral hypoglycemic drugs; Z82.49 Family history of ischemic heart disease and other diseases of the circulatory system; Z95.810 Presence of automatic (implantable) cardiac defibrillator; I25.2 Old myocardial infarction; Z90.49 Acquired absence of other specified parts of digestive tract; Z88.5 Allergy status to narcotic agent; Z88.2 Allergy status to sulfonamides
CPT/HCPCS: 36415; 36430; 36569; 36600; 43244; 71045; 74176; 80053; 81001; 82140; 82150; 82805; 82962; 83036; 83605; 83690; 83735; 83880; 84484; 85014; 85018; 85025; 85379; 85610; 85730; 86850; 86900; 86901; 86920; 87040; 87070; 87081; 87205; 93005; 93306; 94002; 94003; 94761; 96365; 96366; 96372; 96375; 97110; 97116; 97530; A6257; C9113; J0330; J0696; J1815; J2250; J2405; J2543; J2704; J3430; J3480